=== PATIENT | male | born 1955 | race Caucasian/White ===

== ENCOUNTER → 2017-01-06 | Day surgery (SDC) | payer BC ==
[~2017-01-06] MED LIST: Lidocain 1% EPI 1:100,000 * 30 ML MDV ONE; Sodium Bicarbonate 8.4% SYR* 10 ML SYRINGE ONE
[2017-01-06 15:04] VITALS: BP 158/81
--- NOTE | 2017-01-07 03:46 | OP ---
DATE OF OPERATION: 01/06/17 - [facility] DATE OF : 53 SURGEON: Rodo Morgan MD BOLT MAKER: DESMOND Michaels ANESTHESIOLOGIST: None. ANESTHESIA: Local only with 1% lidocaine with epinephrine. PRE-OP DIAGNOSIS: Left long trigger finger. POST-OP DIAGNOSIS: Left long trigger finger. OPERATIVE PROCEDURE: Release of A1 mitchell, left long trigger finger. INDICATIONS: Lake is a patient I had seen in the office. We tried nonoperative treatment and ultimately he had persistent triggering of the left long finger. We talked about risks and benefits and he elected to proceed with left long trigger finger release. ESTIMATED BLOOD LOSS: 5 mL. COMPLICATIONS: None. FINDINGS: As expected. DESCRIPTION OF PROCEDURE: Lake was seen in the preoperative holding area and the correct site and side were marked. We had a little time-out and the skin was cleansed with alcohol and lidocaine with epinephrine and a little bit of bicarbonate was injected to anesthetize the operative area. We then waited about 20 or 30 minutes and then came back to the operating room where the arm was prepped and draped in the usual fashion and a formal time-out was performed. A standard longitudinal 1 cm incision was made over the A1 mitchell. Dissection was carried down with a tenotomy scissors bluntly to expose the flexor tendon sheath. Sheath was opened with a 15 blade longitudinally. I then brought in the tenotomy scissors and released the full extent of the A1 mitchell. Everything was nicely decompressed, so I went ahead and let down the drapes so that he could see and I had him do everything he could to try to get the finger to trigger. He could not induce any clicking or catching. Everything looked good , so I went ahead and irrigated the wound and closed the skin with some 5-0 nylon suture. The wound was then dressed with Xeroform, 4x4, 2-inch Webril and Fawad wrap. He was then taken to the recovery room in stable condition. [id number]/[facility] #: [id number] MTDD
== END | disposition home or self-care (01) ==
LOC: OREAST 10:36
PROVIDERS: ATTEND Orthopaedic Surgery Hand Surgery
DX: M65.332 Trigger finger, left middle finger (principal); Z87.891 Personal history of nicotine dependence